=== PATIENT | male | born 1995 | race Caucasian/White ===

== ENCOUNTER 2022-06-26 16:37 | Outpatient (CLI) | payer MEDICAID, SELFPAY ==
[2022-07-03 00:33] LABS: Ova and Parasite, Fecal Negative (Negative)
== END 2022-06-26 16:38 | disposition home or self-care (01) ==
PROVIDERS: PCP Emergency Medicine; Visit Provider Emergency Medicine
DX: B83.9 Helminthiasis, unspecified (principal)
CPT/HCPCS: 87177; 87209